=== PATIENT | female | born 1990 | race Caucasian/White ===

== ENCOUNTER 2019-01-20 15:01 | Emergency (ER) | payer SELFPAY ==
[~2019-01-20] VITALS: Ht 162.6 cm; Wt 60.0 kg
[2019-01-20 15:03] VITALS: BP 102/58
== END 2019-01-20 15:43 | disposition left against medical advice (07) ==
LOC: ER 15:01
DX: M25.511 Pain in right shoulder (principal); Z53.21 Procedure and treatment not carried out due to patient leaving prior to being seen by health care provider

== ENCOUNTER 2019-01-20 16:18 | Emergency (ER) | payer SELFPAY ==
[~2019-01-20] VITALS: Ht 160 cm; Wt 65.0 kg
[2019-01-20 17:59] VITALS: BP 136/74
== END 2019-01-20 20:20 | disposition left against medical advice (07) ==
LOC: ER 16:18
DX: S43.006A Unspecified dislocation of unspecified shoulder joint, initial encounter (principal); Z53.21 Procedure and treatment not carried out due to patient leaving prior to being seen by health care provider; X58.XXXA Exposure to other specified factors, initial encounter; Y93.89 Activity, other specified; Y92.89 Other specified places as the place of occurrence of the external cause; Y99.8 Other external cause status
CPT/HCPCS: A4565